=== PATIENT | female | born 1940 | race Caucasian/White ===

== ENCOUNTER 2020-08-22 12:20 | Observation (INO) | payer OTHER ==
[2020-08-22 12:31] VITALS: BMI 29.5
[2020-08-22] MEDS ORDERED: ACETAMINOPHEN 1000 MG/100 ML VIAL (NON FORMULARY) IVPB ONE (13:38)
[2020-08-22 13:50] LABS: BASO % 0.9 % (0-2.0); HEMATOCRIT 44.9 % (32.4-45.2); HEMOGLOBIN 14.7 GM/dL (10.7-15.3); LYMPH % 19.3 % (8-40); MCH 30.1 pg (25.7-33.7); MCHC 32.6 g/dl (32.0-36.0); MEAN CELL VOLUME 92.1 fl (80-96); MEAN PLT VOLUME 9.3 fl (7.5-11.1); MONO % 8.8 % (3.8-10.2); PLATELET COUNT 264 K/MM3 (134-434); RBC 4.87 M/mm3 (3.60-5.2); RDW 14.1 % (11.6-15.6); WHITE BLOOD COUNT 9.6 K/mm3 (4.0-10.0)
[2020-08-22 13:58] LABS: INR 0.99 (0.83-1.09)
[2020-08-22 14:01] LABS: ACTIVATED PTT 30.9 SECONDS (25.2-36.5)
[2020-08-22] MEDS ORDERED: ACETAMINOPHEN INJECTION 100 ML IVPB ONE (14:03)
[2020-08-22 14:12] LABS: CHLORIDE 105 mmol/L (98-107); POTASSIUM 3.6 mmol/L (3.5-5.1); SODIUM 139 mmol/L (136-145)
[2020-08-22 14:14] LABS: ALBUMIN 4.3 g/dl (3.4-5.0); ANION GAP 7 MMOL/L (8-16); BLOOD UREA NITROGEN 16.2 mg/dL (7-18); CALCIUM 9.3 mg/dL (8.5-10.1); CO2 27 mmol/L (21-32); GLUCOSE,RANDOM 110 mg/dL (74-106)
[2020-08-22 14:17] LABS: SGPT/ALT 17 U/L (13-61)
[2020-08-22 14:18] LABS: SGOT/AST 15 U/L (15-37)
[2020-08-22 14:19] LABS: BILIRUBIN,TOTAL 0.3 mg/dL (0.2-1); TOT PROT 7.7 g/dl (6.4-8.2)
[2020-08-22 14:20] LABS: ALK PHOS 90 U/L (45-117)
[2020-08-22 14:22] LABS: LDH 227 U/L (84-246)
[2020-08-22 14:27] LABS: CREATININE 0.9 mg/dL (0.55-1.3)
[2020-08-23] MEDS ORDERED: ACETAMINOPHEN 325 MG TABLET (FP) ONE (00:22)
[2020-08-23] MEDS ORDERED: ACETAMINOPHEN 650 MG/20.3 ML ORAL SOLUTION (CUPS) PO ONE (00:27)
[2020-08-23] MEDS ORDERED: REGADENOSON 0.4 MG/5 ML PRE-FILLED SYRINGE IVPUSH ONE ×2 (10:06→10:15)
[2020-08-23] MEDS ORDERED: amLODIPine BESYLATE 5 MG TABLET (FP) PO SCH (11:00)
[2020-08-23] MEDS ORDERED: metoPROLOL SUCCINATE 25 MG TAB.SR.24H (FP) PO SCH (11:00)
[2020-08-23 13:42] VITALS: BP 148/72; PULSE 85; TEMP 98.4
== END 2020-08-23 13:56 | disposition home or self-care (01) ==
LOC: JER 12:20 → JERBED 14:53
PROVIDERS: ADMIT Internal Medicine Hematology & Oncology; ATTEND Internal Medicine Hematology & Oncology
PROC: 3E033NZ Introduction of Analgesics, Hypnotics, Sedatives into Peripheral Vein, Percutaneous Approach (ICD-10-PCS; principal; 2020-08-22)
PROC: 3E033GC Introduction of Other Therapeutic Substance into Peripheral Vein, Percutaneous Approach (ICD-10-PCS; 2020-08-22)
DX: R07.9 Chest pain, unspecified (principal); I10 Essential (primary) hypertension; E78.5 Hyperlipidemia, unspecified; E03.9 Hypothyroidism, unspecified; I42.9 Cardiomyopathy, unspecified; M19.90 Unspecified osteoarthritis, unspecified site; I44.7 Left bundle-branch block, unspecified
CPT/HCPCS: 36415; 71045-TC-FY; 78452-TC; 80053; 82550; 82728; 83615; 83880; 84484; 85025; 85610; 85730; 86140; 86769; 86850; 86900; 86901; 93005; 93010; 93017; 93306-TC; 96374; 96375; 99285-25; A9502; C9803; G0378; J0131; J2785; U0003

== ENCOUNTER 2023-06-16 12:27 | Emergency (ER) | payer OTHER ==
[2023-06-16 12:36] VITALS: BMI 25.7
[2023-06-16] MEDS ORDERED: ACETAMINOPHEN 1000 MG/100 ML BAG IVPB ONE (14:49)
[2023-06-16] MEDS ORDERED: SUCRALFATE 1 GM TABLET (FP) PO ONE (14:49)
[2023-06-16] MEDS ORDERED: MAG HYDROX/AL HYDROX/SIMETH -MYLANTA- ORAL SUSPENSION PO ONE (14:49)
[2023-06-16] MEDS ORDERED: FAMOTIDINE 20 MG/50 ML IVPB 20 MG/50 ML MG IVPB ONE ×2 (14:49→14:57)
[2023-06-16] MEDS ORDERED: FLUCONAZOLE 100 MG TABLET (UD) PO ONE (14:55)
[2023-06-16] MEDS ORDERED: MAG HYDROX/AL HYDROX/SIMETH 30 ML UNIT-DOSE CUP ONE (14:57)
[2023-06-16] MEDS ORDERED: SUCRALFATE 1 GM TABLET (FP) ONE (14:57)
[2023-06-16] MEDS ORDERED: ACETAMINOPHEN INJECTION 100 ML IVPB ONE (14:57)
[2023-06-16 15:09] LABS: EPI CELLS >36 /uL (0-25.1); HYALINE CASTS 10 /uL (0-3.1); PH,URINE 6.5 (5.0-8.0); URINE APPEARANCE CLOUDY; URINE BACTERIA 317 /uL (0-1359); URINE BILIRUBIN 1+ (NEGATIVE); URINE COLOR DK YELLOW; URINE GLUCOSE (UA) NEGATIVE (NEGATIVE); URINE KETONE 1+ (NEGATIVE); URINE LEUK ESTERASE 1+ (NEGATIVE); URINE NITRITE NEGATIVE (NEGATIVE); URINE PROTEIN TRACE (NEGATIVE); URINE RBC 16 /uL (0-23.9); URINE WBC 44 /uL (0-25.8)
[2023-06-16] MEDS ORDERED: FLUCONAZOLE 100 MG TABLET (UD) ONE (15:12)
[2023-06-16 15:18] LABS: URINE CRYSTALS NEGATIVE /hpf
[2023-06-16 15:28] LABS: BASO % 0.5 % (0-2.0); EOS % 0.3 % (0-4.5); HEMATOCRIT 41.9 % (32.4-45.2); LYMPH % 18.4 % (8-40); MCH 30.2 pg (25.7-33.7); MCHC 33.6 g/dl (32.0-36.0); MEAN PLT VOLUME 8.1 fl (7.5-11.1); MONO % 8.8 % (3.8-10.2); PLATELET COUNT 338 10^3/uL (134-434); RBC 4.65 M/mm3 (3.60-5.2); RDW 14.8 % (11.6-15.6)
[2023-06-16 15:51] LABS: POTASSIUM 4.3 mmol/L (3.5-5.1)
[2023-06-16 15:53] LABS: BLOOD UREA NITROGEN 8.1 mg/dL (7-18); CALCIUM 9.8 mg/dL (8.5-10.1)
[2023-06-16 15:56] LABS: CREATININE 0.9 mg/dL (0.55-1.3)
[2023-06-16 15:58] LABS: BILIRUBIN,TOTAL 0.6 mg/dL (0.2-1); TOT PROT 7.5 g/dl (6.4-8.2)
[2023-06-16] MEDS ORDERED: CEFTRIAXONE 1 GM/50 ML BAG ONE (16:09)
[2023-06-16 16:56] VITALS: BP 124/61; PULSE 65; RESP 18; TEMP 98.2
== END 2023-06-16 17:06 | disposition home or self-care (01) ==
LOC: JER 12:27
PROC: 3E033GC Introduction of Other Therapeutic Substance into Peripheral Vein, Percutaneous Approach (ICD-10-PCS; principal; 2023-06-16)
PROC: 3E033NZ Introduction of Analgesics, Hypnotics, Sedatives into Peripheral Vein, Percutaneous Approach (ICD-10-PCS; 2023-06-16)
PROC: 3E03329 Introduction of Other Anti-infective into Peripheral Vein, Percutaneous Approach (ICD-10-PCS; 2023-06-16)
DX: R13.10 Dysphagia, unspecified (principal); R30.0 Dysuria; R10.30 Lower abdominal pain, unspecified; N39.0 Urinary tract infection, site not specified; U07.1 COVID-19; R11.0 Nausea
CPT/HCPCS: 36415; 80053; 81003; 85025; 87086; 99284-25